=== PATIENT | female | born 1980 | race Caucasian/White ===

== ENCOUNTER → 2024-12-31 | Outpatient (CLI) | payer OTHER ==
[~2024-12-31] MED LIST: CLARITIN10 MG PO; MEDROL DOSEPAK4 MG PO
== END | disposition home or self-care (01) ==
LOC: RAD 08:36
PROVIDERS: ATTEND Family Medicine
DX: M25.532 Pain in left wrist (principal)

== ENCOUNTER → 2025-02-04 | Outpatient (CLI) | payer OTHER | LOC: MRI 09:45 | PROVIDERS: ATTEND Family Medicine | DX: M25.832 Other specified joint disorders, left wrist (principal); M25.432 Effusion, left wrist; M25.532 Pain in left wrist ==